=== PATIENT | male | born 1970 | race Caucasian/White ===

== ENCOUNTER 2017-12-13 13:06 | Inpatient (IN) | payer MEDICARE, MEDICAID ==
[~2017-12-13] VITALS: Ht 177.8 cm; Wt 50.7 kg
[~2017-12-13 13:06] MED LIST: ADULT WAL-100 MG/5 M PO; ANTACID LIQUID355 ML PO; BENZOTROPINE; CIPROFLOXACIN500 M1 PO; CITRATE OF MAG296 ML PO; CLONAZEPAM; COLACE 100 MG100 MG PO; DEPAKOTE ER250 MG PO; DEPAKOTE ER500 MG PO; DESMOPRESS10 MCG/0.1 NS; ENSURE PLUS; FAMOTIDINE PO; FLUVOXAMINE MAL25 MG PO; GEODON80 MG; GEODON80 MG PO; GOLYTELY SOLU4000 ML PO; HALDOL; IMODIUM; KEFLEX500 MG PO; KEPPRA 500 MG500 MG PO; LAMICTAL XR100 MG PO; LUVOX 50MG TABL50 M1; MYLANTA GT; NEOSPORIN OIN28.3 GM TOP; NEOSPORIN OINTM15 GM TP; NORCO 5-325 TA1 EACH PO; ROBITUSSIN DM118 ML PO; SENOKOT-S TABL1 EACH PO; SEROQUEL 50 MG50 M1 PO; TRAZODONE HCL100 MG PO; TYLENOL325 MG PO; ZANTAC 150MG T150 MG PO; ZYRTEC 10 MG TA10 MG PO
[2017-12-13 13:13] VITALS: BP 103/62
[2017-12-13] MEDS ORDERED: DIAZEPAM 5 MG5 M1 PO (13:39)
[2017-12-13] MEDS ORDERED: DIAZEPAM5 MG/1 ML RECTAL (13:40)
[2017-12-13] MEDS ORDERED: GEODON80 MG PO (13:41)
[2017-12-13] MEDS ORDERED: KRISTALOSE20 GM PO (13:43)
[2017-12-13] MEDS ORDERED: XYZAL5 MG PO (13:50)
[2017-12-13] MEDS ORDERED: CLONAZEPAM 1 MG1 M1 PO (13:50)
[2017-12-13] MEDS ORDERED: B-COMPLEX PLUS1 EACH PO (13:51)
[2017-12-13] MEDS ORDERED: LOPERAMIDE 2 MG2 M1 PO (13:51)
[2017-12-13] MEDS ORDERED: KEPPRA 500 MG500 M1 PO (13:51)
[2017-12-13] MEDS ORDERED: MIRALAX17 GM PO (13:52)
[2017-12-13] MEDS ORDERED: COLACE100 MG PO (13:52)
[2017-12-13 14:06] LABS: ABSOLUTE LYMPHOCYTES 1.2 thou/uL (0.8-5.3); ABSOLUTE MONOCYTES 0.3 thou/uL (0.0-1.2); BASOPHILS 0.2 %; EOSINOPHILS 0.7 %; HEMATOCRIT 40.2 % (42.0-52.0); HEMOGLOBIN 13.3 gm/dL (14.0-18.0); LYMPHOCYTES 15.6 %; MCHC 33.1 g/dL (28.0-37.0); MCV 93.4 fL (80.0-100.0); MONOCYTES 3.7 %; NUCLEATED RBCS 0 /100WBC; PLATELET COUNT* 259 thou/uL (150-400); POLYS 79.8 %; RDW-CV 13.8 % (10.5-14.5); WBC 7.5 thou/uL (4.0-11.0)
[2017-12-13 14:35] LABS: CREATININE 0.9 mg/dL (0.6-1.3); POTASSIUM 4.2 mmol/L (3.5-5.1)
[2017-12-13 14:40] LABS: ALBUMIN 3.7 g/dL (3.4-5.0); TOTAL BILIRUBIN 0.3 mg/dL (<0.1-1.0); TOTAL PROTEIN 8.6 g/dL (6.4-8.2)
[2017-12-13 16:14] LABS: URINE BILIRUBIN NEGATIVE (Negative); URINE BLOOD NEGATIVE (Negative); URINE CLARITY CLEAR; URINE COLOR YELLOW; URINE GLUCOSE-RANDOM NEGATIVE (Negative); URINE KETONES NEGATIVE (Negative); URINE LEUKOCYTES-REFLEX NEGATIVE (Negative); URINE NITRITE-REFLEX NEGATIVE (Negative); URINE PROTEIN NEGATIVE (Negative); URINE UROBILINOGEN 0.2 E.U./dl (0.2-1.0)
[2017-12-13 18:00] VITALS: BP 108/62
[2017-12-13 18:36] VITALS: BP 109/73
[2017-12-13 21:00] VITALS: BP 115/72
[2017-12-14 00:16] VITALS: BP 108/51
[2017-12-14 08:06] VITALS: BP 117/75
[2017-12-14 16:00] VITALS: BP 118/68
[2017-12-14 21:30] VITALS: BP 114/52
[2017-12-15 04:14] LABS: HEMATOCRIT 34.8 % (42.0-52.0); HEMOGLOBIN 11.7 gm/dL (14.0-18.0); MCHC 33.7 g/dL (28.0-37.0); MPV 8.3 fl. (7.2-11.1); RBC 3.78 mil/uL (4.50-6.00); RDW-CV 13.8 % (10.5-14.5); WBC 12.8 thou/uL (4.0-11.0)
[2017-12-15 04:43] LABS: CALCIUM 8.8 mg/dL (8.5-10.1); CREATININE 0.8 mg/dL (0.6-1.3); MAGNESIUM 2.1 mg/dL (1.8-2.4); POTASSIUM 3.9 mmol/L (3.5-5.1)
[2017-12-15 09:09] VITALS: BP 102/84
[2017-12-15 16:00] VITALS: BP 115/75
[2017-12-15 19:45] VITALS: BP 120/76
[2017-12-16 07:10] LABS: HEMATOCRIT 34.9 % (42.0-52.0); HEMOGLOBIN 11.6 gm/dL (14.0-18.0); MCH 30.7 pg (26.0-34.0); MCHC 33.3 g/dL (28.0-37.0); MPV 7.7 fl. (7.2-11.1); RBC 3.79 mil/uL (4.50-6.00); RDW-CV 13.9 % (10.5-14.5); WBC 7.9 thou/uL (4.0-11.0)
[2017-12-16 07:30] LABS: CALCIUM 8.1 mg/dL (8.5-10.1); CREATININE 0.8 mg/dL (0.6-1.3); MAGNESIUM 1.9 mg/dL (1.8-2.4); POTASSIUM 3.4 mmol/L (3.5-5.1)
[2017-12-16 07:45] VITALS: BP 120/70
[2017-12-16] MEDS ORDERED: LEVAQUIN 750 M750 MG PO (09:07)
[2017-12-16 13:20] VITALS: BP 120/70
[2017-12-16 14:47] VITALS: BP 104/61
== END 2017-12-16 16:20 | disposition home or self-care (01) | DRG 871 ==
LOC: M.ERS 13:06 → M.TBA-ER 16:26 → M.3W 16:26
PROVIDERS: Internal Medicine; Nurse Practitioner Family; Physician Assistant; ADMIT Family Medicine
DX: A41.9 Sepsis, unspecified organism (principal); J69.0 Pneumonitis due to inhalation of food and vomit; K21.9 Gastro-esophageal reflux disease without esophagitis; G47.00 Insomnia, unspecified; K59.00 Constipation, unspecified; R33.9 Retention of urine, unspecified; R41.89 Other symptoms and signs involving cognitive functions and awareness; G40.909 Epilepsy, unspecified, not intractable, without status epilepticus; Z79.899 Other long term (current) drug therapy

== ENCOUNTER 2018-06-02 10:08 | Inpatient (IN) | payer MEDICARE, MEDICAID ==
[~2018-06-02] VITALS: Ht 172.7 cm; Wt 73.5 kg
[~2018-06-02 10:08] MED LIST changes: +B-COMPLEX PLUS1 EACH PO; +CLONAZEPAM 1 MG1 M1 PO; +COLACE100 MG PO; +DIAZEPAM 5 MG5 M1 PO; +DIAZEPAM5 MG/1 ML RECTAL; +KEPPRA 500 MG500 M1 PO; +KRISTALOSE20 GM PO; +LEVAQUIN 750 M750 MG PO; +LOPERAMIDE 2 MG2 M1 PO; +MIRALAX17 GM PO; +XYZAL5 MG PO
[2018-06-02 10:16] VITALS: BP 157/90
[2018-06-02] MEDS ORDERED: BENZTROPINE MES1 MG PO (10:24)
[2018-06-02] MEDS ORDERED: SEROQUEL 50 MG50 MG PO (10:25)
[2018-06-02] MEDS ORDERED: ALMACONE LIQUI355 ML PO (10:27)
[2018-06-02 10:37] LABS: ABSOLUTE BASOPHILS 0.1 thou/uL (0.0-0.2); ABSOLUTE EOSINOPHILS 0.2 thou/uL (0.0-0.7); ABSOLUTE LYMPHOCYTES 2.2 thou/uL (0.8-5.3); ABSOLUTE MONOCYTES 0.6 thou/uL (0.0-1.2); ABSOLUTE NEUTROPHILS 4.3 thou/uL (1.6-8.1); EOSINOPHILS 2.2 %; HEMOGLOBIN 12.8 gm/dL (14.0-18.0); LYMPHOCYTES 29.6 %; MCH 31.1 pg (26.0-34.0); MCHC 33.8 g/dL (28.0-37.0); MONOCYTES 7.7 %; MPV 7.9 fl. (7.2-11.1); NUCLEATED RBCS 0 /100WBC; PLATELET COUNT* 268 thou/uL (150-400); POLYS 59.5 %; RBC 4.13 mil/uL (4.50-6.00); RDW-CV 14.4 % (10.5-14.5); WBC 7.3 thou/uL (4.0-11.0)
[2018-06-02 10:45] LABS: CALCIUM 9.2 mg/dL (8.5-10.1); POTASSIUM 4.2 mmol/L (3.5-5.1); PROTIME 10.3 Seconds (9.20-11.50)
[2018-06-02 10:57] LABS: ALBUMIN 3.7 g/dL (3.4-5.0); TOTAL BILIRUBIN 0.3 mg/dL (<0.1-1.0); TOTAL PROTEIN 8.6 g/dL (6.4-8.2); TROPONIN-I LEVEL 0.07 ng/mL (<0.06)
[2018-06-02 11:18] LABS: URINE BILIRUBIN NEGATIVE (Negative); URINE BLOOD NEGATIVE (Negative); URINE CLARITY CLEAR; URINE COLOR YELLOW; URINE GLUCOSE-RANDOM NEGATIVE (Negative); URINE KETONES NEGATIVE (Negative); URINE LEUKOCYTES-REFLEX NEGATIVE (Negative); URINE NITRITE-REFLEX NEGATIVE (Negative); URINE PROTEIN NEGATIVE (Negative); URINE SPECIFIC GRAVITY 1.015 (1.005-1.030)
[2018-06-02 14:41] VITALS: BP 157/90
--- NOTE | 2018-06-02 15:32 | EKG ---
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 : 1970 Requested By: Abbe Andrea Order Number: [id number] MD: Germain Zurita Measurements Intervals [place] Rate: 85 P: 128 SD: QRS: 76 QRSD: 86 T: 64 QT: 330 QTc: 393 Interpretive Statements nsr artifact baseline Borderline T abnormalities, lateral leads ST elev, probable normal early repol pattern Compared to ECG 04/18/2010 16:39:49 T-wave abnormality now present ST (T wave) deviation now present Sinus bradycardia no longer present Atrial premature complex(es) no longer present Electronically Signed On 06-02-2018 15:32:05 CDT by Germain Zurita [email or web address] <ELECTRONICALLY SIGNED> By: Germain Zurita MD, FACC 06/02/18 1532 1104 1104 Germain Zurita MD, FACC /EPI
[2018-06-02] MEDS ORDERED: ENEMA READY TO133 ML RECTAL (15:53)
[2018-06-02] MEDS ORDERED: LOPERAMIDE 2 MG2 M1 PO (15:54)
[2018-06-02] MEDS ORDERED: AMITIZA 24 MCG24 MC1 PO (15:55)
[2018-06-02 20:13] VITALS: BP 105/75
[2018-06-02 23:06] LABS: GLYCOHEMOGLOBIN (HGB A1C) 5.2 % (4.8-5.6)
[2018-06-03] VITALS (8 sets, daily range): BP systolic 92–164; BP diastolic 42–90
[2018-06-03 06:12] LABS: CHOLESTEROL 123 mg/dL (<200); HDL CHOLESTEROL 59 mg/dL (>40); LDL CHOLESTEROL 58 mg/dL (<100); TC:HDL 2.1 Ratio (Not establshd); TRIGLYCERIDE 32 mg/dL (<150); VLDL 6 mg/dL (<40)
[2018-06-03 06:21] LABS: SERUM ASSESSMENT Clear
--- NOTE | 2018-06-03 12:52 | 2DMMODE ---
[place] [address] 2 D/M-MODE ECHOCARDIOGRAM Name: JAMES KEY Room: [address] IN [facility]#: [id number] Admission: 06/02/18 Attend Phys: Jaime Mercado Discharge: Date of : 68 Date of Service: 06/03/18 1252 Report #: [id number] THIS REPORT FOR: //name// APPROVED REPORT Study performed: 06/03/2018 11:10:37 EXAM: Comprehensive 2D, Doppler, and color-flow Echocardiogram Patient Location: In-Patient Room #: [facility] Status: routine BSA: 1.60 HR: 55 bpm BP: 164/90 mmHg Rhythm: NSR Other Information Study Quality: Good Indications CVA/TIA Echo Enhancing Agent Indication: Rule out Shunt Agent(s) / Amount(s) Used: Agitated Saline 10 cc 2D Dimensions IVSd: 9.44 (7-11mm) LVOT Diam: 19.88 (18-24mm) LVDd: 29.71 mm PWd: 8.92 (7-11mm) Ascending Ao: 31.46 (22-36mm) LVDs: 21.18 (25-40mm) Aortic Root: 28.07 mm Volumes Left Atrial Volume (Systole) LA ESV Index: 17.40 mL/m2 Aortic Valve AoV Peak Pietro.: 0.84 m/s AO Peak Gr.: 2.84 mmHg LVOT Max P.51 mmHg AO Mean Gr.: 1.49 mmHg LVOT Mean P.30 mmHg LVOT Max V: 0.94 m/s AO V2 VTI: 16.75 cm LVOT Mean V: 0.51 m/s MANSOOR (VTI): 3.48 cm2 LVOT V1 VTI: 18.78 [place] [address] 2 D/M-MODE ECHOCARDIOGRAM Name: JAMES KEY Room: [address] IN [facility].#: [id number] Admission: 06/02/18 Attend Phys: Jaime Mercado Discharge: Date of : 68 Date of Service: 06/03/18 1252 Report #: [id number] Mitral Valve E/A Ratio: 1.48 MV Decel. Time: 192.69 ms MV E Max Pietro.: 0.65 m/s MV PHT: 55.88 ms MVA (PHT): 3.94 cm2 TDI E/Lateral E': 3.61 E/Medial E': 5.91 Medial E' Pietro.: 0.11 m/s Lateral E' Pietro.: 0.18 m/s Pulmonary Valve PV Peak Pietro.: 0.67 m/s PV Peak Gr.: 1.77 mmHg Left Ventricle The left ventricle is normal size. There is normal LV segmental wall motion. There is normal left ventricular wall thickness. Left ventricular systolic function is normal. The left ventricular ejection fraction is within the normal range. LVEF is 55-60%. This study is not technically sufficient to allow evaluation of the LV diastolic function. Right Ventricle The right ventricle is normal size. The right ventricular systolic function is normal. Atria The left atrium size is normal. Interatrial septum is intact without evidence of ASD or PFO. The right atrium size is normal. Aortic Valve The aortic valve is normal in structure. No aortic regurgitation is present. There is no aortic valvular stenosis. Mitral Valve The mitral valve is normal in structure. Trace mitral regurgitation. No evidence of mitral valve stenosis. Tricuspid Valve The tricuspid valve is normal in structure. Unable to assess PA pressure. Trace tricuspid regurgitation. Pulmonic Valve The pulmonary valve is normal in structure. There is no pulmonic [place] [address] 2 D/M-MODE ECHOCARDIOGRAM Name: JAMES KEY Room: [address] IN ..#: [id number] Admission: 06/02/18 Attend Phys: Jaime Mercado Discharge: Date of : 68 Date of Service: 06/03/18 1252 Report #: [id number] Great Vessels The aortic root is normal in size. IVC is not visualized. Pericardium There is no pericardial effusion. <Conclusion> Interatrial septum is intact without evidence of ASD or PFO. LVEF is 55-60%. <ELECTRONICALLY SIGNED> By: Greg Orona MD, FACC 06/03/18 1252 125 125 Greg Orona MD, FACC /INF
[2018-06-04] VITALS: BP 116/75
[2018-06-04 08:00] VITALS: BP 81/50
[2018-06-04] MEDS ORDERED: ADVIL200 M3 PO (15:56)
[2018-06-04 15:58] VITALS: BP 81/50
--- NOTE | 2018-06-05 15:14 | CON ---
[address] [address] CONSULTATION Name: JAMES KEY Room: [address] IN [facility].#: [id number] Admission: 06/02/18 Attend Phys: Mariela Alejo Discharge: 06/04/18 Date of : 68 Report #: [id number] THIS REPORT FOR: //name// CC: BRODERICK physician/PCP Jaime Mercado DATE OF SERVICE: 06/02/2018 TYPE OF REPORT: Inpatient consultation. REQUESTING PHYSICIAN: Jaime Mercado D.O. REASON FOR CONSULTATION: Abnormal troponin. HISTORY OF PRESENT ILLNESS: The patient is a 47-year-old man with a history of severe mental retardation, presents as a transfer from a nursing facility with symptoms of being lightheaded, slurred speech and decreased level of consciousness. Apparently, an ECG and troponin were checked per protocol. The patient's ECG demonstrated a slight upsloping ST-segment elevation diffusely and his cardiac troponin levels 0.09. Thus, he was brought in for further evaluation. Clinically, as above, he is not able to give a history but according to his caregiver, he had not really been complaining of any particular chest pain. He had not been having any fevers or chills. He is without orthopnea or PND or difficulty breathing. PAST MEDICAL HISTORY: Severe mental retardation, aspiration history, constipation and urinary retention. ALLERGIES: He has no known drug allergies. HOME MEDICATIONS: Include numerous psych medications. There are no cardiovascular or vascular type medications. PAST SURGICAL HISTORY: Prior surgery for a shoulder surgery. REVIEW OF SYSTEMS: As noted above, not obtainable. PHYSICAL EXAMINATION: VITAL SIGNS: Blood pressure is 157/90, respiratory rate is 15 and pulse is 100. GENERAL: This is a cachectic appearing middle-aged male. He has a palsy and contracted upper extremities. NEUROLOGICAL: There are no focal deficits. He is in general pleasant. CARDIOVASCULAR: Regular. I cannot hear a murmur. LUNGS: [place] [address] CONSULTATION Name: JAMES KEY Room: [address]#: [id number] Admission: 06/02/18 Attend Phys: Mariela Alejo Discharge: 06/04/18 Date of : 68 Report #: [id number] ABDOMEN: Nontender. EXTREMITIES: No peripheral edema. RADIOLOGICAL DATA: Electrocardiogram shows a sinus rhythm, subtle less than 0.[address]-segment depression and MI interval appears to be normal. CT of the brain shows a negative CT of the head. Chest x-ray shows no acute cardiopulmonary process. LABORATORY DATA: His hemoglobin is 12.8; white blood cell count 7.3 and platelet count is 268,000. Troponin-I is 0.07 and 0.06 respectively. IMPRESSION AND PLAN: 1. Abnormal ECG. I do not have an old one to compare it. He clinically does not have angina. However, he gives a poor history given his history of cerebral palsy and mental retardation. He is receiving cycling cardiac troponin levels, which are trending towards negative. His ECG demonstrates a possible pericarditis. 2. Acute pericarditis. We will check an echocardiogram to make sure he does not have an effusion. 3. Elevated blood pressure. I am not sure if this is a chronic problem, but I would monitor it first before treating. <ELECTRONICALLY SIGNED> By: Germain Zurita MD, FACC 06/05/18 1514 1516 [id number] Zurita MD, FACC /nt
--- NOTE | 2018-06-10 11:58 | CON ---
[address] [address] CONSULTATION Name: JAMES KEY Room: [address] IN [facility].#: [id number] Admission: 06/02/18 Attend Phys: Mariela Alejo Discharge: 06/04/18 Date of : 68 Report #: [id number] THIS REPORT FOR: //name// CC: BRODERICK physician/PCP Jaime Mercado HISTORY OF PRESENT ILLNESS: The patient is a 47-year-old male with cerebral palsy and severe mental retardation who unfortunately is unable to provide any history. When I walked into the room, the patient was sitting in the bed in a diaper. The history is obtained from the chart. The patient was brought to the Emergency Room on the day of admission by the caregiver who states that he had been shaking that morning. This was not normal for the patient. The patient woke up and had been acting differently. When she tried to give him his shower, he began to shake. The patient had not been vomiting or had any other abnormal urinary symptoms. His last bowel movement was 5 days previously. There was no fever or cough. Even though the patient was laughing and was in a good mood when he came to the Emergency Room, he was not himself. Yesterday, the patient was seen by Dr. Zurita for an elevated troponin level. An echocardiogram was ordered to evaluate for acute pericarditis. At that time, the patient was noted to have an elevated blood pressure. Further review of the record demonstrates the patient had garbled speech. He seemed more "out of it than normal." In the Emergency Department, the patient had a lactic acid level of 4.2. He was given 1 gram of Rocephin. A repeat lactic acid level was 2. PAST MEDICAL HISTORY: Severe mental retardation, history of aspiration, constipation, urinary retention, polypharmacy. PAST SURGICAL HISTORY: Left shoulder surgery. MEDICATIONS: Vitamin B12, Keppra 750 mg b.i.d., MiraLax 17 grams p.r.n., Colace 200 mg at bedtime, lamotrigine 150 mg at bedtime, Senokot one tablet at bedtime, Seroquel 50 mg b.i.d., Geodon 160 mg at bedtime, clonazepam 1 mg t.i.d., Cogentin 1 mg b.i.d., Amitiza 24 mcg b.i.d., trazodone 100 mg at bedtime, Zantac 150 mg b.i.d., Xyzal 5 mg daily. ALLERGIES: None. PHYSICAL EXAMINATION: VITAL SIGNS: Temperature is 36.5, pulse rate 74, respiratory rate 17, blood pressure 164/90, bedside pulse oximetry 100% on room air. NEUROLOGIC: Cranial nerves 2-12 were grossly intact. The patient was able to move all four extremities equally. Reflexes could not be tested. Coordination could not be tested, [place] [address] CONSULTATION Name: JAMES KEY Room: [address]#: [id number] Admission: 06/02/18 Attend Phys: Mariela Alejo Discharge: 06/04/18 Date of : 68 Report #: [id number] LABORATORY DATA: White blood cell count 7.3, hemoglobin 12.8, hematocrit 38, MCV 92, platelet count 268. INR 1. Urinalysis normal. Chemistry: Sodium 136, potassium 4.2, chloride 100, carbon dioxide 29, BUN 22, creatinine 1, GFR 80, glucose 120. Hemoglobin A1c 5.2. Lactic acid 2, calcium 9.2, total bilirubin 0.3, AST 26, ALT 30, alkaline phosphatase 89. Creatinine kinase 332. Troponin 0.06. BNP 83, total protein 8.6, albumin 3.9, triglycerides 32, cholesterol 123, LDL cholesterol 58, HDL cholesterol 59. IMAGING STUDIES: CT scan of the head negative. Carotid Doppler negative. IMPRESSION AND PLAN: This patient was reported to have an episode of shaking. Apparently, he is on two anticonvulsants and although a seizure disorder is not reported in the past medical history, he is either on these anticonvulsants to prevent seizures or as mood stabilizers. The patient has had an electroencephalogram. The study was difficult to interpret because of muscle artifact; however, no obvious seizure activity was noted. This patient is taking a significant number of medications and perhaps if he is not currently seeing a psychiatrist, a consultation with a psychiatrist in the future could be considered to try to evaluate his medications, which include Cogentin, Klonopin, trazodone, lamotrigine, quetiapine and ziprasidone. I am concerned because the patient is taking two antipsychotics, quetiapine and ziprasidone. Beyond the Psychiatry consult, I have no further recommendations and will follow the patient as needed. <ELECTRONICALLY SIGNED> By: Alicia Chun DO 06/10/18 1158 1156 [id number] Chun DO /nt
--- NOTE | 2018-06-19 19:14 | EEG ---
[facility] [address] [place] [address] EEG STUDY REPORT Name: SHAHIDJAMES Gabrielle Room: [address] IN [facility].#: [id number] Admission: 06/02/18 Attend Phys: Mariela Alejo Discharge: 06/04/18 Date of : 68 Report #: [id number] THIS REPORT FOR: //name// CC: BRODERICK physician/PCP Jaime Mercado DATE OF SERVICE: 06/03/2018 This patient is being evaluated for the possibility of seizure. EEG was done by placing the electrodes by standard 10-20 system of electrode placement. Both referential and sequential montages were used for recording. Background activity in this patient is difficult to determine. A lot of muscle artifact is present. A lot of movement artifact is present because of involuntary movement in this patient. Background activity in this patient does appear to be about 8 Hz and 30 microvolt. Photic stimulation is unremarkable. The patient became drowsy and that is associated with bilateral slowing. IMPRESSION: This EEG is extremely difficult to interpret because it is intermixed with lot of artifact, which come from muscle artifact and involuntary movement artifact. The best I can tell, no definite seizure activity was noticed. EEG is somewhat slow and that is a nonspecific abnormality, which can occur with drowsiness, effect of psychotropic medication, dementia, etc. Clinical correlation is recommended. <ELECTRONICALLY SIGNED> By: Honorio Barajas MD 06/19/18 1914 [id number] Barajas MD /yuniel
== END 2018-06-04 17:25 | DRG 314 ==
LOC: M.ERS 10:08 → M.TBA-ER 12:15 → M.2W 12:15
PROVIDERS: Family Medicine; ADMIT Internal Medicine
DX: I30.9 Acute pericarditis, unspecified (principal); G93.41 Metabolic encephalopathy; I44.2 Atrioventricular block, complete; G45.9 Transient cerebral ischemic attack, unspecified; G80.9 Cerebral palsy, unspecified; K21.9 Gastro-esophageal reflux disease without esophagitis; E86.0 Dehydration; F42.9 Obsessive-compulsive disorder, unspecified; F20.9 Schizophrenia, unspecified; I34.0 Nonrheumatic mitral (valve) insufficiency; Z79.899 Other long term (current) drug therapy